=== PATIENT | female | born 1965 | race African-American/Black ===

== ENCOUNTER 2025-07-21 22:27 | Inpatient (IN) | payer OTHER ==
[~2025-07-21] VITALS: Ht 167.6 cm; Wt 144.3 kg
[2025-07-21 23:20] LABS: BASOPHILS % 0.5 % (0.0-2.0); EOSINOPHILS % 0.4 % (0.0-5.0); HEMATOCRIT. 39.5 % (36.0-48.0); HEMOGLOBIN. 12.6 g/dL (12.0-16.0); LYMPHOCYTES % 28.7 % (20.0-50.0); MEAN PLATELET VOLUME 9.6 fl (7.4-10.4); MONOCYTES % 6.3 % (2.0-8.0); NEUTROPHILS % 64.1 % (40.0-76.0); PLATELET 257 x1000/uL (130-400); RED BLOOD CELL COUNT 4.38 mill/uL (4.2-5.4); RED CELL DISTRIBUTION WIDTH 16.8 % (11.6-14.6)
[2025-07-21 23:30] LABS: TROPONIN I HIGH SENSITIVITY 852 ng/L (3.0-34)
[2025-07-22] VITALS (9 sets, daily range): BP systolic 94–127; BP diastolic 62–89; PULSE 85–97; RESP 22–34; TEMP 36.6–36.9; O2SAT 98–100
[2025-07-22] MEDS: ENOXAPARIN 120MG/0.8ML SYR SUBCUT ONE
[2025-07-22 00:30] LABS: CREATININE 0.9 mg/dL (0.6-1.0); UREA NITROGEN BLOOD 16 mg/dL (9-23)
[2025-07-22 00:31] LABS: PROTEIN TOTAL 7.0 g/dL (6.0-8.3)
[2025-07-22 00:32] LABS: ASPARTATE AMINOTRANSFERASE 32 IU/L (<34); BILIRUBIN DIRECT 0.1 mg/dL (<=3.0); BILIRUBIN TOTAL 0.6 mg/dL (0.1-1.0)
[2025-07-22] MEDS ORDERED: ENOXAPARIN 120MG/0.8ML SYR SUBCUT NR (01:45)
[2025-07-22] MEDS ORDERED: ATOR40TA70 MT (03:49)
[2025-07-22] MEDS ORDERED: LISI10TA26 MT (03:49)
[2025-07-22] MEDS ORDERED: FURO20TA4 PO (03:49)
[2025-07-22] MEDS ORDERED: ACETAMINOPHEN 325MG TABLET PO PRN (06:00)
[2025-07-22] MEDS: ENOXAPARIN 120MG/0.8ML SYR SUBCUT SCH (10:08)
[2025-07-22 10:29] LABS: BASOPHILS % 0.4 % (0.0-2.0); EOSINOPHILS % 0.4 % (0.0-5.0); HEMATOCRIT. 38.5 % (36.0-48.0); HEMOGLOBIN. 12.2 g/dL (12.0-16.0); LYMPHOCYTES % 32.2 % (20.0-50.0); MEAN PLATELET VOLUME 9.8 fl (7.4-10.4); MONOCYTES % 7.6 % (2.0-8.0); NEUTROPHILS % 59.4 % (40.0-76.0); PLATELET 222 x1000/uL (130-400); RED BLOOD CELL COUNT 4.14 mill/uL (4.2-5.4); RED CELL DISTRIBUTION WIDTH 15.5 % (11.6-14.6)
[2025-07-22 10:31] LABS: INR 1.0
[2025-07-23] VITALS (12 sets, daily range): BP systolic 121–141; BP diastolic 77–96; PULSE 83–96; RESP 21–28; TEMP 36.2–36.9; O2SAT 98–100
[2025-07-23 17:54] LABS: BASOPHILS % 0.4 % (0.0-2.0); EOSINOPHILS % 0.8 % (0.0-5.0); HEMATOCRIT. 36.9 % (36.0-48.0); HEMOGLOBIN. 11.8 g/dL (12.0-16.0); LYMPHOCYTES % 33.4 % (20.0-50.0); MEAN PLATELET VOLUME 9.5 fl (7.4-10.4); MONOCYTES % 7.5 % (2.0-8.0); NEUTROPHILS % 57.9 % (40.0-76.0); PLATELET 202 x1000/uL (130-400); RED BLOOD CELL COUNT 4.00 mill/uL (4.2-5.4); RED CELL DISTRIBUTION WIDTH 15.2 % (11.6-14.6)
[2025-07-23 17:58] LABS: CREATININE 0.7 mg/dL (0.6-1.0); UREA NITROGEN BLOOD 10 mg/dL (9-23)
[2025-07-24] VITALS (13 sets, daily range): BP systolic 97–146; BP diastolic 55–97; PULSE 79–98; RESP 19–31; TEMP 36.4–36.9; O2SAT 95–100
[2025-07-24 07:22] LABS: BASOPHILS % 0.4 % (0.0-2.0); EOSINOPHILS % 0.9 % (0.0-5.0); HEMATOCRIT. 35.7 % (36.0-48.0); HEMOGLOBIN. 11.6 g/dL (12.0-16.0); LYMPHOCYTES % 29.8 % (20.0-50.0); MEAN PLATELET VOLUME 9.5 fl (7.4-10.4); MONOCYTES % 6.5 % (2.0-8.0); NEUTROPHILS % 62.4 % (40.0-76.0); PLATELET 191 x1000/uL (130-400); RED BLOOD CELL COUNT 3.87 mill/uL (4.2-5.4); RED CELL DISTRIBUTION WIDTH 15.2 % (11.6-14.6)
[2025-07-24 07:35] LABS: CREATININE 0.7 mg/dL (0.6-1.0); UREA NITROGEN BLOOD 10 mg/dL (9-23)
[2025-07-24 07:36] LABS: TROPONIN I HIGH SENSITIVITY 125 ng/L (3.0-34)
[2025-07-24] MEDS: ASPIRIN 81MG TABLET PO SCH (12:26)
[2025-07-25] VITALS (40 sets, daily range): BP systolic 47–160; BP diastolic 25–123; PULSE 81–117; RESP 0–36; TEMP 36.3–37.4; O2SAT 92–100
[2025-07-25] MEDS ORDERED: HEPARIN 1000 UNITS/ML 10ML ONE ×2 (14:29→15:15)
[2025-07-25] MEDS ORDERED: LIDOCAINE HCL 1% 20ML VIAL ONE (14:29)
[2025-07-25] MEDS ORDERED: MIDAZOLAM HCL 2 MG/2 ML VIAL ONE ×2 (14:57→16:34)
[2025-07-25] MEDS ORDERED: FENTANYL CITRATE/PF 50MCG/ML 2ML VIAL ONE (14:57)
[2025-07-25] MEDS ORDERED: PROTAMINE SULFATE 10MG/ML VIAL 5ML IV ONE ×2 (15:29→15:40)
[2025-07-25] MEDS ORDERED: LIDOCAINE HCL 1% 10 MG/ML 10ML VIAL ONE (15:33)
[2025-07-25] MEDS ORDERED: DILTIAZEM HCL 125 MG in DEXT 5% WATER 100 ML IV PRN (16:00)
[2025-07-25] MEDS ORDERED: RACEPINEPHRINE 2.25% 0.5ML NEB VIAL HHN PRN (16:00)
[2025-07-25 17:00] LABS: BASOPHILS % 0.6 % (0.0-2.0); EOSINOPHILS % 0.7 % (0.0-5.0); HEMATOCRIT. 32.4 % (36.0-48.0); HEMOGLOBIN. 10.1 g/dL (12.0-16.0); LYMPHOCYTES % 32.7 % (20.0-50.0); MEAN PLATELET VOLUME 9.6 fl (7.4-10.4); MONOCYTES % 4.7 % (2.0-8.0); NEUTROPHILS % 61.3 % (40.0-76.0); PLATELET 246 x1000/uL (130-400); RED BLOOD CELL COUNT 3.45 mill/uL (4.2-5.4); RED CELL DISTRIBUTION WIDTH 15.0 % (11.6-14.6)
[2025-07-25] MEDS: DILTIAZEM HCL 5MG/ML 5ML VIAL IV SCH (17:00)
[2025-07-25] MEDS ORDERED: IPRATROPIUM/ALBUTEROL 0.5-3(2.5)MG/3ML NEB HHN PRN (17:00)
[2025-07-25] MEDS: PANTOPRAZOLE SODIUM 40 MG/VIAL IV SCH (17:07)
[2025-07-25 17:13] LABS: CREATININE 0.9 mg/dL (0.6-1.0); UREA NITROGEN BLOOD 8 mg/dL (9-23)
[2025-07-25 17:14] LABS: PROTEIN TOTAL 5.9 g/dL (6.0-8.3)
[2025-07-25 17:15] LABS: ASPARTATE AMINOTRANSFERASE 33 IU/L (<34)
[2025-07-25 17:16] LABS: BILIRUBIN TOTAL 0.9 mg/dL (0.1-1.0)
[2025-07-25] MEDS: PROPOFOL 10MG/ML 100ML 100 ML IV PRN (17:22)
[2025-07-25 17:43] LABS: BG BASE EXCESS -3.3 mmol/L (-2.0-3.0); BG CARBOXYHEMOGLOBIN 0.0 % (0.5-1.5); BG DEOXYHEMOGLOBIN 0.3 % (0.0-5.0); BG FRACTION INSPIRED OXYGEN 100; BG HCO3 ACT 24.8 mmol/L (21.0-28.0); BG METHEMOGLOBIN 0.3 % (0.5-1.5); BG OXYGEN SATURATION 99.7 % (94.0-98.0); BG OXYHEMOGLOBIN 99.4 % (94.0-98.0); BG PCO2 59.1 mmHg (32.0-45.0); BG PEEP (cmH2O) 5.0 cmH2O; BG PH 7.240 (7.350-7.450); BG PO2 272.5 mmHg (83.0-108.0); BG SAMPLE SITE RIGHT RADIAL; BG TIDAL VOLUME(mL) 500.0 mL; BG TOTAL HEMOGLOBIN 11.8 g/dL (12.0-16.0); BG VENT MODE VENT - AC; BG VENT RATE 18.0 set
[2025-07-25] MEDS: PIPERACILLIN/TAZO 3.375G/50ML 50 ML IV SCH (18:00)
[2025-07-25] MEDS: NOREPINEPHRINE 8MG/250ML PMX 250 ML IV PRN (18:04)
[2025-07-25] MEDS ORDERED: ATROPINE SULFATE 1MG/10ML SYR IV PRN (18:15)
[2025-07-25] MEDS ORDERED: ACETAMINOPHEN 325MG TABLET PO PRN (18:15)
[2025-07-25] MEDS: IPRATROPIUM/ALBUTEROL 0.5-3(2.5)MG/3ML NEB HHN SCH (20:52)
[2025-07-25 23:54] LABS: BASOPHILS % 0.1 % (0.0-2.0); EOSINOPHILS % 0.0 % (0.0-5.0); HEMATOCRIT. 31.4 % (36.0-48.0); HEMOGLOBIN. 10.0 g/dL (12.0-16.0); LYMPHOCYTES % 11.3 % (20.0-50.0); MEAN PLATELET VOLUME 9.1 fl (7.4-10.4); MONOCYTES % 5.6 % (2.0-8.0); NEUTROPHILS % 83.0 % (40.0-76.0); PLATELET 224 x1000/uL (130-400); RED BLOOD CELL COUNT 3.42 mill/uL (4.2-5.4); RED CELL DISTRIBUTION WIDTH 15.1 % (11.6-14.6)
[2025-07-26] VITALS (106 sets, daily range): BP systolic 78–139; BP diastolic 42–86; PULSE 90–113; RESP 16–23; TEMP 36.7–37; O2SAT 97–100
[2025-07-26 06:55] LABS: BASOPHILS % 0.3 % (0.0-2.0); EOSINOPHILS % 0.1 % (0.0-5.0); HEMATOCRIT. 27.5 % (36.0-48.0); HEMOGLOBIN. 8.9 g/dL (12.0-16.0); LYMPHOCYTES % 16.1 % (20.0-50.0); MEAN PLATELET VOLUME 9.5 fl (7.4-10.4); MONOCYTES % 7.0 % (2.0-8.0); NEUTROPHILS % 76.5 % (40.0-76.0); PLATELET 191 x1000/uL (130-400); RED BLOOD CELL COUNT 2.97 mill/uL (4.2-5.4); RED CELL DISTRIBUTION WIDTH 14.7 % (11.6-14.6)
[2025-07-26] MEDS ORDERED: LIDOCAINE HCL 1% 10 MG/ML 10ML VIAL ONE (07:20)
[2025-07-26 08:48] LABS: CREATININE 0.8 mg/dL (0.6-1.0); TRIGLYCERIDE 157 mg/dL (0-150)
[2025-07-26 08:49] LABS: UREA NITROGEN BLOOD 14 mg/dL (9-23)
[2025-07-26 12:15] LABS: BG BASE EXCESS 0.8 mmol/L (-2.0-3.0); BG CARBOXYHEMOGLOBIN 0.1 % (0.5-1.5); BG DEOXYHEMOGLOBIN 1.4 % (0.0-5.0); BG FRACTION INSPIRED OXYGEN 60; BG HCO3 ACT 25.4 mmol/L (21.0-28.0); BG METHEMOGLOBIN 0.2 % (0.5-1.5); BG OXYGEN SATURATION 98.6 % (94.0-98.0); BG OXYHEMOGLOBIN 98.3 % (94.0-98.0); BG PCO2 39.8 mmHg (32.0-45.0); BG PEEP (cmH2O) 5.0 cmH2O; BG PH 7.422 (7.350-7.450); BG PO2 120.9 mmHg (83.0-108.0); BG SAMPLE SITE LEFT RADIAL; BG TIDAL VOLUME(mL) 500.0 mL; BG TOTAL HEMOGLOBIN 4.9 g/dL (12.0-16.0); BG VENT MODE VENT - AC; BG VENT RATE 18.0 set
[2025-07-26 12:23] LABS: CLARITY URINE CLOUDY (CLEAR); COLOR URINE DARK YELLOW (YELLOW); GLUCOSE URINE NEGATIVE (NEGATIVE); KETONES URINE NEGATIVE (NEGATIVE); LEUKOCYTE ESTERASE URINE 1+ (NEGATIVE); NITRITE URINE NEGATIVE (NEGATIVE); OCCULT BLOOD URINE NEGATIVE (NEGATIVE); PH URINE 5.5 (4.5-8.0); PROTEIN URINE TRACE (NEGATIVE); SPECIFIC GRAVITY URINE 1.028 (1.005-1.030); UROBILINOGEN URINE 1.0 E.U./dL (0.2-1.0)
[2025-07-26 13:23] LABS: URIC ACID CRYSTALS URINE 1+ /lpf
[2025-07-26 13:24] LABS: MUCUS URINE 2+ /lpf (< = 2+)
[2025-07-26 13:25] LABS: FINE GRANULAR CASTS URINE 0-5 /lpf; HYALINE CASTS URINE 0-5 /lpf
[2025-07-26 13:26] LABS: COARSE GRANULAR CASTS URINE 0-5 /lpf; RBC URINE 0-2 /hpf (0-2); WBC URINE 0-2 /hpf (0-2)
[2025-07-26 13:28] LABS: BACTERIA URINE TRACE; SQUAMOUS EPITHELIAL CELL URINE FEW /lpf (RARE/1+)
[2025-07-26 17:03] LABS: PLATELET 161 x1000/uL (130-400); RED BLOOD CELL COUNT 2.63 mill/uL (4.2-5.4); RED CELL DISTRIBUTION WIDTH 14.9 % (11.6-14.6)
[2025-07-26] MEDS: PROPOFOL 10MG/ML 100ML 100 ML IV PRN (22:15)
[2025-07-27] VITALS (91 sets, daily range): BP systolic 83–148; BP diastolic 43–102; PULSE 83–111; RESP 0–32; TEMP 36.7–37.2; O2SAT 99–100
[2025-07-27] MEDS: PIPERACILLIN/TAZO 3.375G/50ML 50 ML IV SCH (00:19)
[2025-07-27 07:13] LABS: BASOPHILS % 0.7 % (0.0-2.0); EOSINOPHILS % 0.7 % (0.0-5.0); HEMATOCRIT. 23.9 % (36.0-48.0); HEMOGLOBIN. 7.7 g/dL (12.0-16.0); LYMPHOCYTES % 11.9 % (20.0-50.0); MONOCYTES % 7.1 % (2.0-8.0); NEUTROPHILS % 79.6 % (40.0-76.0); RED BLOOD CELL COUNT 2.57 mill/uL (4.2-5.4); RED CELL DISTRIBUTION WIDTH 15.3 % (11.6-14.6); TRIGLYCERIDE 123 mg/dL (0-150)
[2025-07-27] MEDS ORDERED: CEFTRIAXONE 1GM/50ML 50 ML IV SCH (08:45)
[2025-07-27 10:57] LABS: MEAN PLATELET VOLUME 10.3 fl (7.4-10.4); PLATELET 161 x1000/uL (130-400)
[2025-07-27] MEDS: PROPOFOL 10MG/ML 100ML 100 ML IV PRN (19:49)
[2025-07-28] VITALS (107 sets, daily range): BP systolic 77–147; BP diastolic 40–104; PULSE 74–101; RESP 17–27; TEMP 37.1–37.8; O2SAT 99–100
[2025-07-28 08:30] LABS: BASOPHILS % 0.4 % (0.0-2.0); EOSINOPHILS % 0.8 % (0.0-5.0); LYMPHOCYTES % 13.2 % (20.0-50.0); MEAN PLATELET VOLUME 9.4 fl (7.4-10.4); MONOCYTES % 7.2 % (2.0-8.0); NEUTROPHILS % 78.4 % (40.0-76.0); PLATELET 142 x1000/uL (130-400); RED BLOOD CELL COUNT 2.30 mill/uL (4.2-5.4); RED CELL DISTRIBUTION WIDTH 15.4 % (11.6-14.6)
[2025-07-28 09:06] LABS: HEMATOCRIT. 21.1 % (36.0-48.0); HEMOGLOBIN. 6.9 g/dL (12.0-16.0)
[2025-07-28 09:15] LABS: TRIGLYCERIDE 104 mg/dL (0-150); UREA NITROGEN BLOOD 8 mg/dL (9-23)
[2025-07-28 09:17] LABS: CREATININE 0.5 mg/dL (0.6-1.0)
[2025-07-28] MEDS: PROPOFOL 10MG/ML 100ML 100 ML IV PRN (20:15)
[2025-07-29] VITALS (88 sets, daily range): BP systolic 102–171; BP diastolic 44–126; PULSE 70–113; RESP 11–35; TEMP 37.2–38; O2SAT 97–100
[2025-07-29 05:47] LABS: BASOPHILS % 0.4 % (0.0-2.0); EOSINOPHILS % 1.4 % (0.0-5.0); HEMATOCRIT. 25.0 % (36.0-48.0); HEMOGLOBIN. 8.2 g/dL (12.0-16.0); LYMPHOCYTES % 17.2 % (20.0-50.0); MEAN PLATELET VOLUME 9.6 fl (7.4-10.4); MONOCYTES % 7.6 % (2.0-8.0); NEUTROPHILS % 73.4 % (40.0-76.0); PLATELET 147 x1000/uL (130-400); RED BLOOD CELL COUNT 2.71 mill/uL (4.2-5.4); RED CELL DISTRIBUTION WIDTH 15.0 % (11.6-14.6)
[2025-07-29 06:00] LABS: CREATININE 0.6 mg/dL (0.6-1.0)
[2025-07-29 06:01] LABS: TRIGLYCERIDE 99 mg/dL (0-150); UREA NITROGEN BLOOD 6 mg/dL (9-23)
[2025-07-29 09:27] LABS: BG BASE EXCESS 6.2 mmol/L (-2.0-3.0); BG CARBOXYHEMOGLOBIN 0.8 % (0.5-1.5); BG DEOXYHEMOGLOBIN 1.6 % (0.0-5.0); BG FRACTION INSPIRED OXYGEN 40; BG HCO3 ACT 30.8 mmol/L (21.0-28.0); BG METHEMOGLOBIN 0.3 % (0.5-1.5); BG OXYGEN SATURATION 98.4 % (94.0-98.0); BG OXYHEMOGLOBIN 97.3 % (94.0-98.0); BG PCO2 45.5 mmHg (32.0-45.0); BG PEEP (cmH2O) 5.0 cmH2O; BG PH 7.449 (7.350-7.450); BG PO2 112.0 mmHg (83.0-108.0); BG SAMPLE SITE RIGHT RADIAL; BG TIDAL VOLUME(mL) 500.0 mL; BG TOTAL HEMOGLOBIN 8.2 g/dL (12.0-16.0); BG VENT MODE VENT - AC; BG VENT RATE 18.0 set
[2025-07-29 11:34] LABS: BG BASE EXCESS 3.6 mmol/L (-2.0-3.0); BG CARBOXYHEMOGLOBIN 0.2 % (0.5-1.5); BG DEOXYHEMOGLOBIN 3.3 % (0.0-5.0); BG FRACTION INSPIRED OXYGEN 40; BG HCO3 ACT 28.2 mmol/L (21.0-28.0); BG METHEMOGLOBIN 0.3 % (0.5-1.5); BG OXYGEN SATURATION 96.7 % (94.0-98.0); BG OXYHEMOGLOBIN 96.2 % (94.0-98.0); BG PCO2 42.9 mmHg (32.0-45.0); BG PEEP (cmH2O) 5.0 cmH2O; BG PH 7.436 (7.350-7.450); BG PO2 87.4 mmHg (83.0-108.0); BG SAMPLE SITE RIGHT RADIAL; BG TIDAL VOLUME(mL) 500.0 mL; BG TOTAL HEMOGLOBIN 9.6 g/dL (12.0-16.0); BG VENT MODE VENT - AC; BG VENT RATE 18.0 set
[2025-07-29 14:48] LABS: BG BASE EXCESS 7.2 mmol/L (-2.0-3.0); BG CARBOXYHEMOGLOBIN 4.9 % (0.5-1.5); BG DEOXYHEMOGLOBIN 0.8 % (0.0-5.0); BG FRACTION INSPIRED OXYGEN 35; BG HCO3 ACT 31.1 mmol/L (21.0-28.0); BG METHEMOGLOBIN 1.2 % (0.5-1.5); BG OXYGEN SATURATION 99.1 % (94.0-98.0); BG OXYHEMOGLOBIN 93.1 % (94.0-98.0); BG PCO2 41.1 mmHg (32.0-45.0); BG PEEP (cmH2O) 5.0 cmH2O; BG PH 7.497 (7.350-7.450); BG PO2 107.6 mmHg (83.0-108.0); BG SAMPLE SITE RIGHT RADIAL; BG TOTAL HEMOGLOBIN 3.1 g/dL (12.0-16.0); BG VENT MODE MASK - CPAP
[2025-07-29] MEDS: MIDODRINE HCL 5MG TABLET PO SCH (17:05)
[2025-07-30] VITALS (37 sets, daily range): BP systolic 91–125; BP diastolic 48–105; PULSE 85–100; RESP 15–31; TEMP 36.8–37.8; O2SAT 88–100
[2025-07-30 05:45] LABS: BASOPHILS % 0.4 % (0.0-2.0); EOSINOPHILS % 1.5 % (0.0-5.0); HEMATOCRIT. 22.6 % (36.0-48.0); HEMOGLOBIN. 7.3 g/dL (12.0-16.0); LYMPHOCYTES % 15.5 % (20.0-50.0); MEAN PLATELET VOLUME 9.6 fl (7.4-10.4); MONOCYTES % 6.8 % (2.0-8.0); NEUTROPHILS % 75.8 % (40.0-76.0); PLATELET 147 x1000/uL (130-400); RED BLOOD CELL COUNT 2.43 mill/uL (4.2-5.4); RED CELL DISTRIBUTION WIDTH 15.2 % (11.6-14.6)
[2025-07-30 05:58] LABS: CREATININE 0.5 mg/dL (0.6-1.0); UREA NITROGEN BLOOD 7 mg/dL (9-23)
[2025-07-30] MEDS: POTASSIUM CHLORIDE 20MEQ/PACKET PO SCH (08:32)
[2025-07-31] VITALS (40 sets, daily range): BP systolic 91–119; BP diastolic 53–98; PULSE 80–98; RESP 16–32; TEMP 37.1–37.3; O2SAT 95–100
[2025-07-31 06:21] LABS: BASOPHILS % 0.8 % (0.0-2.0); EOSINOPHILS % 1.3 % (0.0-5.0); HEMATOCRIT. 23.2 % (36.0-48.0); HEMOGLOBIN. 7.4 g/dL (12.0-16.0); LYMPHOCYTES % 17.6 % (20.0-50.0); MEAN PLATELET VOLUME 10.2 fl (7.4-10.4); MONOCYTES % 8.5 % (2.0-8.0); NEUTROPHILS % 71.8 % (40.0-76.0); PLATELET 118 x1000/uL (130-400); RED BLOOD CELL COUNT 2.44 mill/uL (4.2-5.4); RED CELL DISTRIBUTION WIDTH 15.9 % (11.6-14.6)
[2025-07-31 06:33] LABS: CREATININE 0.5 mg/dL (0.6-1.0); UREA NITROGEN BLOOD 7 mg/dL (9-23)
[2025-07-31] MEDS ORDERED: NA PHOS,M-B/NA PHOS,DI-BA ENEMA 118ML PR PRN (22:15)
[2025-07-31] MEDS: DOCUSATE SODIUM 100MG CAPSULE PO SCH (22:23)
[2025-07-31] MEDS: MAGNESIUM HYDROXIDE 400MG/5ML 30ML UDC PO PRN (22:23)
[2025-08-01] VITALS (49 sets, daily range): BP systolic 76–119; BP diastolic 55–84; PULSE 75–94; RESP 17–33; TEMP 36.4–37.6; O2SAT 97–100
[2025-08-01 06:39] LABS: BASOPHILS % 0.7 % (0.0-2.0); EOSINOPHILS % 1.0 % (0.0-5.0); HEMATOCRIT. 23.2 % (36.0-48.0); HEMOGLOBIN. 7.5 g/dL (12.0-16.0); LYMPHOCYTES % 18.2 % (20.0-50.0); MEAN PLATELET VOLUME 9.4 fl (7.4-10.4); MONOCYTES % 8.6 % (2.0-8.0); NEUTROPHILS % 71.5 % (40.0-76.0); PLATELET 182 x1000/uL (130-400); RED BLOOD CELL COUNT 2.50 mill/uL (4.2-5.4); RED CELL DISTRIBUTION WIDTH 15.5 % (11.6-14.6)
[2025-08-01 07:03] LABS: CREATININE 0.5 mg/dL (0.6-1.0); UREA NITROGEN BLOOD 8 mg/dL (9-23)
[2025-08-01] MEDS: APIXABAN 5 MG TABLET PO SCH (21:41)
[2025-08-02] VITALS (11 sets, daily range): BP systolic 98–127; BP diastolic 50–95; PULSE 78–89; RESP 21–30; TEMP 36.3–37.1; O2SAT 96–100
[2025-08-02 07:31] LABS: CREATININE 0.5 mg/dL (0.6-1.0); UREA NITROGEN BLOOD 9 mg/dL (9-23)
[2025-08-02 07:32] LABS: BASOPHILS % 0.7 % (0.0-2.0); EOSINOPHILS % 1.1 % (0.0-5.0); HEMATOCRIT. 23.4 % (36.0-48.0); HEMOGLOBIN. 7.7 g/dL (12.0-16.0); LYMPHOCYTES % 17.8 % (20.0-50.0); MEAN PLATELET VOLUME 9.8 fl (7.4-10.4); MONOCYTES % 7.0 % (2.0-8.0); NEUTROPHILS % 73.4 % (40.0-76.0); PLATELET 191 x1000/uL (130-400); RED BLOOD CELL COUNT 2.51 mill/uL (4.2-5.4); RED CELL DISTRIBUTION WIDTH 15.3 % (11.6-14.6)
[2025-08-02] MEDS: IOHEXOL-350 100 ML BOTTLE ONE (12:36)
[2025-08-03] VITALS (12 sets, daily range): BP systolic 102–127; BP diastolic 48–84; PULSE 77–91; RESP 23–31; TEMP 36.3–36.9; O2SAT 93–100
[2025-08-04] VITALS: BP 118/69; PULSE 99; RESP 30; TEMP 36.8; O2SAT 91
[2025-08-04 04:00] VITALS: BP 136/34; PULSE 90; RESP 18; TEMP 36.9; O2SAT 94
[2025-08-04 08:00] VITALS: BP 110/64; PULSE 86; RESP 18; TEMP 36.5; O2SAT 96
[2025-08-04 12:00] VITALS: BP 126/68; PULSE 81; RESP 18; TEMP 36.6; O2SAT 97
[2025-08-04 14:15] VITALS: BP 126/68; PULSE 81; RESP 18; TEMP 97.9
[2025-08-04 16:00] VITALS: BP 110/53; PULSE 86; RESP 18; TEMP 36.4; O2SAT 97
== END 2025-08-04 17:17 | DRG 853 ==
LOC: ER 22:27 → 5EST 07-22 01:01 → EDBEDREQSVC 07-22 01:09 → EDBEDREQDT 07-22 01:09 → EDBEDREQ 07-22 01:09 → EDBEDREQTM 07-22 01:09 → CVICU 07-25 16:14 → 5EST 08-01 20:35 → 8WST 08-04 01:33
PROVIDERS: ADMIT Internal Medicine; ATTEND Internal Medicine
PROC: 02CR3ZZ Extirpation of Matter from Left Pulmonary Artery, Percutaneous Approach (ICD-10-PCS; principal; 2025-07-25)
PROC: 4A023N6 Measurement of Cardiac Sampling and Pressure, Right Heart, Percutaneous Approach (ICD-10-PCS; 2025-07-25)
PROC: B31TYZZ Fluoroscopy of Left Pulmonary Artery using Other Contrast (ICD-10-PCS; 2025-07-25)
PROC: B31SYZZ Fluoroscopy of Right Pulmonary Artery using Other Contrast (ICD-10-PCS; 2025-07-25)
PROC: B51BYZZ Fluoroscopy of Right Lower Extremity Veins using Other Contrast (ICD-10-PCS; 2025-07-25)
PROC: 5A1945Z Respiratory Ventilation, 24-96 Consecutive Hours (ICD-10-PCS; 2025-07-25)
PROC: 0BH17EZ Insertion of Endotracheal Airway into Trachea, Via Natural or Artificial Opening (ICD-10-PCS; 2025-07-25)
PROC: 02HV33Z Insertion of Infusion Device into Superior Vena Cava, Percutaneous Approach (ICD-10-PCS; 2025-07-26)
PROC: B548ZZA Ultrasonography of Superior Vena Cava, Guidance (ICD-10-PCS; 2025-07-26)
PROC: 30233N1 Transfusion of Nonautologous Red Blood Cells into Peripheral Vein, Percutaneous Approach (ICD-10-PCS; 2025-07-28)
DX: A41.9 Sepsis, unspecified organism (principal); G93.41 Metabolic encephalopathy; I26.99 Other pulmonary embolism without acute cor pulmonale; I21.A1 Myocardial infarction type 2; J96.01 Acute respiratory failure with hypoxia; R65.21 Severe sepsis with septic shock; I27.29 Other secondary pulmonary hypertension; N39.0 Urinary tract infection, site not specified; I10 Essential (primary) hypertension; E66.01 Morbid (severe) obesity due to excess calories; D62 Acute posthemorrhagic anemia; D68.59 Other primary thrombophilia; I47.10 Supraventricular tachycardia, unspecified; Z68.43 Body mass index [BMI] 50.0-59.9, adult; R04.1 Hemorrhage from throat; R73.03 Prediabetes; E78.00 Pure hypercholesterolemia, unspecified; Z97.5 Presence of (intrauterine) contraceptive device; Z79.899 Other long term (current) drug therapy
CPT/HCPCS: 31720; 36415; 36573; 36600; 37184; 37185; 71045; 71275; 74018; 75743; 75820; 75825; 76857; 80048; 80053; 80076; 81003; 82330; 82375; 82805; 82962; 83036; 83735; 83880; 84145; 84478; 84484; 85014; 85018; 85025; 85027; 85347; 85379; 86850; 86900; 86920; 87070; 93005; 93306; 93970; 94002; 94003; 94070; 94640; 94664; 97163; 97166; 99285; A4606; A4615; C1725; C1769; C1887; C1893; J1644; J1650; J2003; J2250; J2470; J2543; J2704; J2720; J3010; J3490; P9016; Q9967; C1894